=== PATIENT | male | born 1980 | race Caucasian/White ===

== ENCOUNTER 2021-04-30 14:05 | Inpatient (IN) | payer OTHER ==
[~2021-04-30] VITALS: Ht 185.4 cm; Wt 94.0 kg
[2021-04-30] MEDS ORDERED: KETOROLAC TROMETH 30 MG/ML 1ML VIAL IV ONE (14:15)
[2021-04-30] MEDS ORDERED: ONDANSETRON HCL 4 MG/2 ML VIAL IV ONE (14:15)
[2021-04-30] MEDS ORDERED: SODIUM CHLORIDE 0.9% 1,000 ML IVB ONE (14:15)
[2021-04-30 15:06] LABS: Basophils # (auto) 0 10 ^3/uL (0-0.2); Basophils % (auto) 0.2 % (0.0-2.0); Eosinophils # (auto) 0 10 ^3/uL (0-0.8); Hematocrit 44.8 % (41.0-53.0); Hemoglobin 15.6 g/dL (13.5-17.5); Lymphocytes # (auto) 1.1 10 ^3/uL (0.4-5.4); Lymphocytes % (auto) 6.2 % (10.0-50.0); Mean Corpuscular Hemoglobin 30.1 pg (28.0-32.0); Mean Corpuscular Hgb Conc. 34.7 g/dL (32.0-36.0); Mean Corpuscular Volume 86.6 fL (80.0-100.0); Monocytes # (auto) 0.5 10 ^3/uL (0-1.3); Monocytes % (auto) 2.8 % (0.0-12.0); Neutrophils # (auto) 15.4 10 ^3/uL (1.6-8.6); Neutrophils % (auto) 90.8 % (37.0-80.0); Red Blood Cells 5.18 10^6/uL (4.5-5.90); Red Cell Distribution Width 12.9 % (11.8-14.3)
[2021-04-30 15:19] LABS: Albumin 4.3 g/dL (3.4-5.0); BUN/Creatinine Ratio 11.6; Calcium 8.8 mg/dL (8.5-10.1); Potassium 4.5 mmol/L (3.5-5.1)
[2021-04-30 15:22] LABS: Bilirubin, Total 0.6 mg/dL (0.2-1.0); Total Protein 7.8 g/dL (6.4-8.2)
[2021-04-30 15:28] LABS: INR 1.11 (0.9-1.15); Partial Thromboplastin Time 26.2 sec (23.6-33.0)
[2021-04-30] MEDS: D5W/SOD CHL 0.45% 1,000 ML IV SCH ×2 (16:45→23:01)
[2021-04-30] MEDS ORDERED: NITROGLYCERIN 0.4 MG SL TAB SL PRN (16:45)
[2021-04-30] MEDS ORDERED: ONDANSETRON HCL 4 MG/2 ML VIAL IV PRN (16:45)
[2021-04-30] MEDS ORDERED: HYDROcodone-ACET 5/325MG TAB PO PRN (16:45)
[2021-04-30] MEDS ORDERED: MORPHINE SULFATE INJECTION 2 MG/2 ML SYRG IV PRN (16:45)
[2021-04-30 18:18] LABS: Urine Bacteria NONE SEEN /hpf (None Seen); Urine Blood 3+ /uL (Negative); Urine Budding Yeast FEW /hpf (None Seen); Urine Mucus FEW (None Seen); Urine Specific Gravity 1.025 (1.001-1.035); Urine WBC <1 /hpf (0 - 3)
[2021-04-30] MEDS: cefTRIAXone 1GM/50ML D5W 50 ML IV SCH (18:43)
[2021-04-30] MEDS: HYDROmorphone HCL 2 MG/ML VL IV PRN ×2 (19:11→23:12)
[2021-04-30 21:29] VITALS: BP 122/75
[2021-04-30 22:00] VITALS: BP 122/75
[2021-04-30] MEDS: PANTOPRAZOLE 40 MG/10 ML VIAL INJ IV SCH (23:01)
[2021-05-01] MEDS: HYDROmorphone HCL 2 MG/ML VL IV PRN ×4 (02:23→20:29)
[2021-05-01 05:00] VITALS: BP 122/72
[2021-05-01] MEDS: HYDROcodone-ACET 10/325MG TAB PO PRN ×2 (05:56→23:12)
[2021-05-01] MEDS: PANTOPRAZOLE 40 MG/10 ML VIAL INJ IV SCH ×2 (08:41→21:51)
[2021-05-01] MEDS: cefTRIAXone 1GM/50ML D5W 50 ML IV SCH (08:41)
[2021-05-01] MEDS ORDERED: TAMSULOSIN HYDROCHLORIDE 0.4 MG CAP PO ONE (09:00)
[2021-05-01] MEDS ORDERED: MANNITOL FTV 25% 12.5 GM/50 ML 50 ML IV ONE ×2 (09:00→13:00)
[2021-05-01] MEDS: D5W/SOD CHL 0.45% 1,000 ML IV SCH ×2 (09:38→23:30)
[2021-05-01] MEDS: KETOROLAC TROMETH 30 MG/ML 1ML VIAL IV PRN (16:52)
[2021-05-01 22:00] VITALS: BP 123/80
[2021-05-02] MEDS: KETOROLAC TROMETH 30 MG/ML 1ML VIAL IV PRN ×3 (00:50→19:45)
[2021-05-02 05:00] VITALS: BP 130/71
[2021-05-02] MEDS: D5W/SOD CHL 0.45% 1,000 ML IV SCH ×2 (08:45→22:19)
[2021-05-02 09:00] VITALS: BP 135/78
[2021-05-02] MEDS: cefTRIAXone 1GM/50ML D5W 50 ML IV SCH (10:00)
[2021-05-02] MEDS: PANTOPRAZOLE 40 MG/10 ML VIAL INJ IV SCH ×2 (10:00→22:14)
[2021-05-02] MEDS: HYDROcodone-ACET 10/325MG TAB PO PRN (10:21)
[2021-05-02 13:00] VITALS: BP 147/89
[2021-05-02] MEDS: HYDROmorphone HCL 2 MG/ML VL IV PRN ×3 (13:23→20:52)
[2021-05-02 16:47] VITALS: BP 167/98
[2021-05-02 22:00] VITALS: BP 132/92
[2021-05-03] MEDS: HYDROmorphone HCL 2 MG/ML VL IV PRN ×4 (01:06→19:46)
[2021-05-03 05:00] VITALS: BP 143/85
[2021-05-03 08:28] VITALS: BP 152/86
[2021-05-03] MEDS: cefTRIAXone 1GM/50ML D5W 50 ML IV SCH (09:46)
[2021-05-03] MEDS: D5W/SOD CHL 0.45% 1,000 ML IV SCH ×2 (09:47→21:36)
[2021-05-03] MEDS: PANTOPRAZOLE 40 MG/10 ML VIAL INJ IV SCH ×2 (09:47→21:32)
[2021-05-03 13:00] VITALS: BP 139/96
[2021-05-03] MEDS: KETOROLAC TROMETH 30 MG/ML 1ML VIAL IV PRN (13:23)
[2021-05-03] MEDS: OXYCODONE W/ ACETAMINOPHEN 5/325MG TABLET PO PRN ×2 (16:23→21:38)
[2021-05-03 16:49] VITALS: BP 140/97
[2021-05-03 22:00] VITALS: BP 148/94
[2021-05-04] MEDS: HYDROmorphone HCL 2 MG/ML VL IV PRN ×6 (00:18→23:36)
[2021-05-04] MEDS: OXYCODONE W/ ACETAMINOPHEN 5/325MG TABLET PO PRN ×4 (01:59→20:31)
[2021-05-04 05:00] VITALS: BP 147/95
[2021-05-04 06:13] LABS: Basophils # (auto) 0 10 ^3/uL (0-0.2); Basophils % (auto) 0.8 % (0.0-2.0); Eosinophils # (auto) 0.2 10 ^3/uL (0-0.8); Eosinophils % (auto) 2.9 % (0.0-7.0); Hemoglobin 13.7 g/dL (13.5-17.5); Lymphocytes # (auto) 2.2 10 ^3/uL (0.4-5.4); Lymphocytes % (auto) 38.7 % (10.0-50.0); Mean Corpuscular Hemoglobin 30.1 pg (28.0-32.0); Mean Corpuscular Hgb Conc. 35.1 g/dL (32.0-36.0); Mean Corpuscular Volume 85.6 fL (80.0-100.0); Monocytes # (auto) 0.5 10 ^3/uL (0-1.3); Monocytes % (auto) 9.4 % (0.0-12.0); Neutrophils # (auto) 2.7 10 ^3/uL (1.6-8.6); Neutrophils % (auto) 48.2 % (37.0-80.0); Nucleated Red Blood Cells % 0.1 %; Red Blood Cells 4.56 10^6/uL (4.5-5.90); Red Cell Distribution Width 12.6 % (11.8-14.3); White Blood Cell 5.6 10^3/uL (4.4-10.8)
[2021-05-04 06:22] LABS: Calcium 8.6 mg/dL (8.5-10.1)
[2021-05-04 06:25] LABS: BUN/Creatinine Ratio 7.7; Potassium 3.5 mmol/L (3.5-5.1)
[2021-05-04] MEDS: cefTRIAXone 1GM/50ML D5W 50 ML IV SCH (08:56)
[2021-05-04] MEDS: PANTOPRAZOLE 40 MG/10 ML VIAL INJ IV SCH ×2 (08:56→20:31)
[2021-05-04 09:00] VITALS: BP 152/88
[2021-05-04] MEDS: D5W/SOD CHL 0.45% 1,000 ML IV SCH ×2 (09:04→20:31)
[2021-05-04] MEDS ORDERED: MANNITOL FTV 25% 12.5 GM/50 ML 50 ML IV ONE (10:00)
[2021-05-04] MEDS: TAMSULOSIN HYDROCHLORIDE 0.4 MG CAP PO SCH (12:44)
[2021-05-04 13:00] VITALS: BP 154/94
[2021-05-04 17:00] VITALS: BP 148/80
[2021-05-04 22:00] VITALS: BP 141/98
[2021-05-05] MEDS: OXYCODONE W/ ACETAMINOPHEN 5/325MG TABLET PO PRN ×4 (02:04→21:58)
[2021-05-05] MEDS: HYDROmorphone HCL 2 MG/ML VL IV PRN ×4 (04:49→18:21)
[2021-05-05 05:00] VITALS: BP 137/67
[2021-05-05] MEDS: D5W/SOD CHL 0.45% 1,000 ML IV SCH ×2 (06:15→16:45)
[2021-05-05 08:26] VITALS: BP 138/81
[2021-05-05] MEDS: cefTRIAXone 1GM/50ML D5W 50 ML IV SCH (08:40)
[2021-05-05] MEDS: PANTOPRAZOLE 40 MG/10 ML VIAL INJ IV SCH ×2 (08:40→21:58)
[2021-05-05 12:48] VITALS: BP 119/72
[2021-05-05 16:41] VITALS: BP 138/93
[2021-05-05] MEDS: TAMSULOSIN HYDROCHLORIDE 0.4 MG CAP PO SCH (18:21)
[2021-05-05 22:00] VITALS: BP 151/91
[2021-05-06] MEDS: D5W/SOD CHL 0.45% 1,000 ML IV SCH ×3 (01:00→21:35)
[2021-05-06] MEDS: OXYCODONE W/ ACETAMINOPHEN 5/325MG TABLET PO PRN ×3 (02:57→12:54)
[2021-05-06 04:55] VITALS: BP 120/73
[2021-05-06 08:00] VITALS: BP 157/91
[2021-05-06 09:00] VITALS: BP 157/91
[2021-05-06] MEDS: PANTOPRAZOLE 40 MG/10 ML VIAL INJ IV SCH ×2 (10:33→21:31)
[2021-05-06] MEDS: cefTRIAXone 1GM/50ML D5W 50 ML IV SCH (10:34)
[2021-05-06] MEDS: HYDROmorphone HCL 2 MG/ML VL IV PRN ×4 (10:42→23:19)
[2021-05-06 13:00] VITALS: BP 121/92
[2021-05-06 17:00] VITALS: BP 113/74
[2021-05-06] MEDS: TAMSULOSIN HYDROCHLORIDE 0.4 MG CAP PO SCH (18:00)
[2021-05-06 22:00] VITALS: BP 123/74
[2021-05-07] MEDS: OXYCODONE W/ ACETAMINOPHEN 5/325MG TABLET PO PRN ×3 (01:17→21:35)
[2021-05-07 05:00] VITALS: BP 123/74
[2021-05-07 05:17] LABS: Basophils # (auto) 0 10 ^3/uL (0-0.2); Basophils % (auto) 0.8 % (0.0-2.0); Eosinophils # (auto) 0.2 10 ^3/uL (0-0.8); Eosinophils % (auto) 2.8 % (0.0-7.0); Hematocrit 41.3 % (41.0-53.0); Hemoglobin 14.5 g/dL (13.5-17.5); Lymphocytes # (auto) 1.9 10 ^3/uL (0.4-5.4); Lymphocytes % (auto) 33.3 % (10.0-50.0); Mean Corpuscular Hemoglobin 30.5 pg (28.0-32.0); Mean Corpuscular Hgb Conc. 35.2 g/dL (32.0-36.0); Mean Corpuscular Volume 86.6 fL (80.0-100.0); Monocytes # (auto) 0.5 10 ^3/uL (0-1.3); Monocytes % (auto) 9.2 % (0.0-12.0); Neutrophils # (auto) 3.1 10 ^3/uL (1.6-8.6); Neutrophils % (auto) 53.9 % (37.0-80.0); Nucleated Red Blood Cells % 0.1 %; Red Blood Cells 4.77 10^6/uL (4.5-5.90); Red Cell Distribution Width 12.7 % (11.8-14.3); White Blood Cell 5.7 10^3/uL (4.4-10.8)
[2021-05-07 05:25] LABS: INR 1.06 (0.9-1.15); Partial Thromboplastin Time 29.6 sec (23.6-33.0)
[2021-05-07 05:28] LABS: Albumin 3.4 g/dL (3.4-5.0); Calcium 8.8 mg/dL (8.5-10.1); Potassium 3.9 mmol/L (3.5-5.1)
[2021-05-07 05:33] LABS: BUN/Creatinine Ratio 13.4; Bilirubin, Total 0.5 mg/dL (0.2-1.0); Total Protein 7.4 g/dL (6.4-8.2)
[2021-05-07] MEDS ORDERED: ceFAZolin 1GM/50ML 100 ML IV ONE (07:12)
[2021-05-07] MEDS ORDERED: fentaNYL CITRATE 100 MCG/2 ML VL ONE (07:51)
[2021-05-07] MEDS ORDERED: MEPERIDINE HCL (25 MG/ML) 1ML VIAL ONE (07:51)
[2021-05-07] MEDS ORDERED: MIDAZOLAM HCL 2MG/2ML 2ml VIAL (1mg/ml) ONE (07:51)
[2021-05-07] MEDS ORDERED: IOHEXOL 300 MG/ML 100ML BOTTLE IJ ONE (08:06)
[2021-05-07] MEDS ORDERED: PROPOFOL 10 MG/ML 20 ML IV ONE (08:15)
[2021-05-07] MEDS ORDERED: DexAMETHasone SOD PHOS 10MG/1ML VIAL INJ ONE (08:15)
[2021-05-07] MEDS ORDERED: KETOROLAC TROMETH 30 MG/ML 1ML VIAL ONE (08:27)
[2021-05-07] MEDS ORDERED: LABETALOL HCL 5 MG/ML 4ML SYRINGE IV PRN (09:00)
[2021-05-07] MEDS ORDERED: ePHEDrine SULFATE 50 MG/ML AMP IV PRN (09:00)
[2021-05-07] MEDS ORDERED: MORPHINE SULFATE 4 MG/ML SYR/VIAL IV PRN (09:00)
[2021-05-07] MEDS ORDERED: KETOROLAC TROMETH 30 MG/ML 1ML VIAL IV ONE (09:00)
[2021-05-07] MEDS ORDERED: MIDAZOLAM HCL 2MG/2ML 2ml VIAL (1mg/ml) IV PRN (09:00)
[2021-05-07] MEDS ORDERED: HYDROmorphone HCL 2 MG/ML VL IV PRN (09:00)
[2021-05-07] MEDS ORDERED: ONDANSETRON HCL 4 MG/2 ML VIAL IV PRN (09:00)
[2021-05-07] MEDS: PANTOPRAZOLE 40 MG/10 ML VIAL INJ IV SCH ×2 (10:02→21:35)
[2021-05-07] MEDS: cefTRIAXone 1GM/50ML D5W 50 ML IV SCH (10:03)
[2021-05-07] MEDS: D5W/SOD CHL 0.45% 1,000 ML IV SCH ×3 (10:05→20:33)
[2021-05-07 12:46] VITALS: BP 132/71
[2021-05-07] MEDS: HYDROmorphone HCL 2 MG/ML VL IV PRN ×2 (17:33→20:34)
[2021-05-07] MEDS: TAMSULOSIN HYDROCHLORIDE 0.4 MG CAP PO SCH (18:01)
[2021-05-07 22:00] VITALS: BP 133/91
[2021-05-08] MEDS: OXYCODONE W/ ACETAMINOPHEN 5/325MG TABLET PO PRN ×4 (02:05→22:46)
[2021-05-08] MEDS: HYDROmorphone HCL 2 MG/ML VL IV PRN ×4 (04:43→20:21)
[2021-05-08] MEDS: D5W/SOD CHL 0.45% 1,000 ML IV SCH ×2 (04:48→16:30)
[2021-05-08 05:00] VITALS: BP 121/72
[2021-05-08 08:00] VITALS: BP 136/83
[2021-05-08 08:30] VITALS: BP 136/83
[2021-05-08] MEDS: PANTOPRAZOLE 40 MG/10 ML VIAL INJ IV SCH ×2 (09:33→21:29)
[2021-05-08] MEDS: cefTRIAXone 1GM/50ML D5W 50 ML IV SCH (09:33)
[2021-05-08 13:00] VITALS: BP 137/98
[2021-05-08] MEDS: TAMSULOSIN HYDROCHLORIDE 0.4 MG CAP PO SCH (17:43)
[2021-05-08 22:00] VITALS: BP 144/96
[2021-05-09] MEDS: HYDROmorphone HCL 2 MG/ML VL IV PRN ×5 (00:53→22:56)
[2021-05-09 05:00] VITALS: BP 127/73
[2021-05-09 08:00] VITALS: BP 140/120
[2021-05-09 09:00] VITALS: BP 140/102
[2021-05-09] MEDS: cefTRIAXone 1GM/50ML D5W 50 ML IV SCH (09:48)
[2021-05-09] MEDS: PANTOPRAZOLE 40 MG/10 ML VIAL INJ IV SCH ×2 (09:48→22:06)
[2021-05-09] MEDS: D5W/SOD CHL 0.45% 1,000 ML IV SCH ×2 (10:45→14:05)
[2021-05-09] MEDS: OXYCODONE W/ ACETAMINOPHEN 5/325MG TABLET PO PRN ×3 (11:37→20:37)
[2021-05-09 12:51] VITALS: BP 138/79
[2021-05-09 16:43] VITALS: BP 153/100
[2021-05-09] MEDS: TAMSULOSIN HYDROCHLORIDE 0.4 MG CAP PO SCH (17:43)
[2021-05-09 20:29] VITALS: BP 152/101
[2021-05-10] MEDS: OXYCODONE W/ ACETAMINOPHEN 5/325MG TABLET PO PRN ×4 (01:18→19:47)
[2021-05-10 05:00] VITALS: BP 132/72
[2021-05-10] MEDS: HYDROmorphone HCL 2 MG/ML VL IV PRN ×4 (05:32→22:40)
[2021-05-10] MEDS: D5W/SOD CHL 0.45% 1,000 ML IV SCH ×2 (06:45→16:55)
[2021-05-10 07:01] LABS: Basophils # (auto) 0.1 10 ^3/uL (0-0.2); Basophils % (auto) 1.3 % (0.0-2.0); Eosinophils # (auto) 0.1 10 ^3/uL (0-0.8); Eosinophils % (auto) 2.3 % (0.0-7.0); Hematocrit 42.2 % (41.0-53.0); Hemoglobin 14.4 g/dL (13.5-17.5); Lymphocytes # (auto) 2.1 10 ^3/uL (0.4-5.4); Lymphocytes % (auto) 37.2 % (10.0-50.0); Mean Corpuscular Hemoglobin 29.7 pg (28.0-32.0); Mean Corpuscular Hgb Conc. 34.1 g/dL (32.0-36.0); Mean Corpuscular Volume 87.2 fL (80.0-100.0); Monocytes # (auto) 0.5 10 ^3/uL (0-1.3); Monocytes % (auto) 8.9 % (0.0-12.0); Neutrophils # (auto) 2.8 10 ^3/uL (1.6-8.6); Neutrophils % (auto) 50.3 % (37.0-80.0); Nucleated Red Blood Cells % 0.1 %; Red Blood Cells 4.85 10^6/uL (4.5-5.90); Red Cell Distribution Width 12.8 % (11.8-14.3); White Blood Cell 5.5 10^3/uL (4.4-10.8)
[2021-05-10 07:23] LABS: Albumin 3.4 g/dL (3.4-5.0); Calcium 8.9 mg/dL (8.5-10.1); Potassium 3.7 mmol/L (3.5-5.1)
[2021-05-10 07:25] LABS: BUN/Creatinine Ratio 15.2; Bilirubin, Total 0.2 mg/dL (0.2-1.0); Total Protein 7.4 g/dL (6.4-8.2)
[2021-05-10 08:00] VITALS: BP 144/110
[2021-05-10 09:00] VITALS: BP 145/98
[2021-05-10] MEDS: PANTOPRAZOLE 40 MG/10 ML VIAL INJ IV SCH ×2 (09:14→22:37)
[2021-05-10] MEDS: cefTRIAXone 1GM/50ML D5W 50 ML IV SCH (09:15)
[2021-05-10 13:00] VITALS: BP 142/93
[2021-05-10 17:00] VITALS: BP 132/82
[2021-05-10] MEDS: TAMSULOSIN HYDROCHLORIDE 0.4 MG CAP PO SCH (18:18)
[2021-05-10 22:00] VITALS: BP 129/97
[2021-05-11] MEDS: OXYCODONE W/ ACETAMINOPHEN 5/325MG TABLET PO PRN ×5 (00:33→20:52)
[2021-05-11] MEDS: D5W/SOD CHL 0.45% 1,000 ML IV SCH ×3 (02:45→20:52)
[2021-05-11] MEDS: HYDROmorphone HCL 2 MG/ML VL IV PRN ×5 (03:54→18:53)
[2021-05-11 04:52] VITALS: BP 115/64
[2021-05-11 05:26] LABS: Basophils # (auto) 0 10 ^3/uL (0-0.2); Basophils % (auto) 0.6 % (0.0-2.0); Eosinophils # (auto) 0.2 10 ^3/uL (0-0.8); Eosinophils % (auto) 3.1 % (0.0-7.0); Hematocrit 41.6 % (41.0-53.0); Hemoglobin 14.6 g/dL (13.5-17.5); Lymphocytes # (auto) 2.1 10 ^3/uL (0.4-5.4); Lymphocytes % (auto) 39.4 % (10.0-50.0); Mean Corpuscular Hemoglobin 30.1 pg (28.0-32.0); Mean Corpuscular Hgb Conc. 35.1 g/dL (32.0-36.0); Mean Corpuscular Volume 85.8 fL (80.0-100.0); Monocytes # (auto) 0.5 10 ^3/uL (0-1.3); Monocytes % (auto) 9.5 % (0.0-12.0); Neutrophils # (auto) 2.6 10 ^3/uL (1.6-8.6); Neutrophils % (auto) 47.4 % (37.0-80.0); Red Blood Cells 4.84 10^6/uL (4.5-5.90); Red Cell Distribution Width 12.8 % (11.8-14.3); White Blood Cell 5.4 10^3/uL (4.4-10.8)
[2021-05-11 05:50] LABS: Albumin 3.3 g/dL (3.4-5.0); Calcium 8.5 mg/dL (8.5-10.1); Potassium 3.4 mmol/L (3.5-5.1)
[2021-05-11 05:56] LABS: BUN/Creatinine Ratio 15.2; Bilirubin, Total 0.3 mg/dL (0.2-1.0); Total Protein 7.2 g/dL (6.4-8.2)
[2021-05-11 08:00] VITALS: BP 133/93
[2021-05-11] MEDS: PANTOPRAZOLE 40 MG/10 ML VIAL INJ IV SCH (09:58)
[2021-05-11] MEDS: cefTRIAXone 1GM/50ML D5W 50 ML IV SCH (09:58)
[2021-05-11 12:00] VITALS: BP 133/75
[2021-05-11 16:00] VITALS: BP 133/83
[2021-05-11] MEDS: TAMSULOSIN HYDROCHLORIDE 0.4 MG CAP PO SCH (17:57)
[2021-05-11] MEDS: PANTOPRAZOLE 40 MG TAB PO SCH (20:52)
[2021-05-11 22:00] VITALS: BP 128/88
[2021-05-12] VITALS (7 sets, daily range): BP systolic 111–145; BP diastolic 72–98
[2021-05-12] MEDS: HYDROmorphone HCL 2 MG/ML VL IV PRN ×4 (00:11→15:19)
[2021-05-12] MEDS: D5W/SOD CHL 0.45% 1,000 ML IV SCH ×2 (00:15→13:49)
[2021-05-12] MEDS: OXYCODONE W/ ACETAMINOPHEN 5/325MG TABLET PO PRN ×4 (03:03→18:43)
[2021-05-12] MEDS: PANTOPRAZOLE 40 MG TAB PO SCH (09:09)
[2021-05-12] MEDS: cefTRIAXone 1GM/50ML D5W 50 ML IV SCH (09:09)
[2021-05-12] MEDS ORDERED: MANNITOL FTV 25% 12.5 GM/50 ML 50 ML IV ONE (13:15)
[2021-05-12] MEDS ORDERED: PHENAZOPYRIDINE HCL 100 MG TAB PO SCH (18:00)
[2021-05-12] MEDS: TAMSULOSIN HYDROCHLORIDE 0.4 MG CAP PO SCH (18:37)
== END 2021-05-12 20:00 | DRG 694 ==
LOC: ER 14:05 → EDBD 14:05 → EEVIPCON 14:05 → OVERFLOW 16:44 → WEST WING 21:52
PROVIDERS: ADMIT Specialist; ATTEND Specialist
PROC: 0TF4XZZ Fragmentation in Left Kidney Pelvis, External Approach (ICD-10-PCS; 2021-05-07)
PROC: 0TF7XZZ Fragmentation in Left Ureter, External Approach (ICD-10-PCS; principal; 2021-05-07 07:53)
DX: N13.2 Hydronephrosis with renal and ureteral calculous obstruction (principal); K44.9 Diaphragmatic hernia without obstruction or gangrene; E78.00 Pure hypercholesterolemia, unspecified; Z20.822 Contact with and (suspected) exposure to COVID-19; H40.9 Unspecified glaucoma; Z79.899 Other long term (current) drug therapy; Z86.16 Personal history of COVID-19
CPT/HCPCS: 36415; 74018; 74176; 76775; 80048; 80053; 81001; 82360; 85025; 85610; 85730; 87086; 87426; 96361; 96374; 96375; C9113; G0378; J0690; J0696; J1100; J1885; J2250; J2405; J2704